=== PATIENT | female | born 1970 | race Caucasian/White ===

== ENCOUNTER 2017-02-15 21:19 | Emergency (ER) | payer BC ==
[2017-02-15] MEDS ORDERED: 0.9 % SODIUM CHLORIDE 1,000 ML IV SCH ×2 (22:00→23:30)
--- NOTE | 2017-02-15 22:34 | Diagnostic Imaging Report ---
MELANY ZAVALA [facility] [address] [facility].[address] [address] Report Submission Date: Feb 15, 2017 10:22:23 PM CDT Patient Study Name: TONE HER Date: Feb 15, 2017 9:40:26 PM CDT Modality Type: CR Gender: F Description: CHEST : 70 Institution: [facility] Physician: MELANY ZAVALA Chest - one-view Clinical history: Chest pain. Findings: Examination of the chest in single portable AP view 02/15/2017 2140 hours with no prior film for comparison demonstrates lungs to be clear. Cardiovascular and mediastinal silhouettes are within normal limits. The bony thorax is intact. Impression: 1. No active disease Electronically signed on Feb 15, 2017 10:22:23 PM CDT by: Damon IRENE
[2017-02-15 22:42] LABS: BASOPHILS % 0.8 (0.0-1.5); EOSINOPHILS % 2.2 % (0.0-6.8); MEAN CORPUSCULAR HEMOGLOBIN 27.7 pg (28.0-34.0); MONOCYTES % 4.6 % (0.0-11.0); NEUTROPHILS # 6.9 # k/uL (1.4-7.7)
[2017-02-15 22:44] LABS: eGFR (African) > 60; eGFR (Non-African) > 60
--- NOTE | 2017-02-15 22:58 | ED Physician Documentation ---
Chest Pain - HISTORIAN Historian: patient, paramedics - [facility] Chief Complaint: Chest Pain Additional Information: dhestpain nausea emesis [id number] and has been 300+ for past few days - usually runs below 200 Onset: days ago (last urine 1630 small amt) Timing: gradual onset Duration: worse Last known Well Date: 02/13/17 Last Known Well Time: 17:00 Context: activity Severity: moderate Quality: none. denies: pressure, tightness, indigestion, burning, dull, aching , sharp Chest Pain Radiation: no radiation Chest Pain Signs/Symptoms: nausea. denies: vomiting, diaphoresis, cool extremities, dizziness Worsened By: nothing - ROS CONST: no problems MS/LYMPH: none EYES/ENT: none SKIN/ENDO: none NEURO/PSYCH: none, other (very hard of hearing) - PAST HX AL risk factors: no pertinent history, other (htn hypothryoid). denies: hypertension, diabetes Type 1 DVT/PE Risk Factors: none TAD/AAA risk factors: none Neuro deficit: none GI disease: GERD (had hiatal hernia repair now better) Surgeries/Procedures: cholecysectomy Allergies/Adverse Reactions: Allergies Allergy/AdvReac Type Severity Reaction Status Date / Time grass pollen-perennial rye, Allergy Verified 04/25/15 02:02 standar [grass poll-perennial rye,std] Iodine and Iodide Containing Allergy Verified 04/25/15 02:02 Produc onion Allergy Verified 04/25/15 02:02 shellfish derived Allergy Verified 04/25/15 02:02 wheat Allergy Verified 04/25/15 02:02 Home Medications: Ambulatory Orders Medication Instructions Recorded Citalopram Hydrobromide [Celexa] 20 mg PO QD 04/25/15 Ergocalciferol (Vitamin D2) 50,000 unit PO WEEK 04/25/15 [Vitamin D2] Hydrochlorothiazide [Hydrodiuril] 12.5 mg PO D 04/25/15 Insulin Glargine,Hum.rec.anlog 80 unit SQ D 04/25/15 [Lantus] Levothyroxine Sodium [Synthroid] 100 mcg PO 0700 04/25/15 Lisinopril 5 mg PO D 04/25/15 Metformin HCl [Glucophage] 1,000 mg PO D 04/25/15 Metoprolol Tartrate [Lopressor] 25 mg PO D 04/25/15 Omeprazole 20 mg PO D 04/25/15 Potassium Chloride [Klor-Con M20] 20 meq PO DAILY 04/25/15 Trazodone HCl 50 mg PO HS 04/25/15 - SOCIAL HX Smoking History: non-smoker Alcohol Use: none Drug Use: none - FAMILY HX Family HX: none - VITAL SIGNS Vital Signs: Vital Signs Temp Pulse Resp BP Pulse Ox 164/79 04/25/15 03:52 - REVIEWED ASSESSMENTS Nursing Assessment Reviewed: Yes Vitals Reviewed: Yes ED Results Lab/Radiology - Lab Results Lab Results: Lab Results 02/15/17 02/15/17 02/15/17 22:21 22:21 22:21 WBC 9.40 K/ul K/ul (4.00-12.00) RBC 4.72 M/ul M/ul (3.90-5.20) Hgb 13.1 g/dL g/dL (12.0-16.0) Hct 42.1 % % (34.5-46.5) MCV 89.0 fl fl (80.0-100.0) MCH 27.7 pg L pg (28.0-34.0) MCHC 31.1 g/dL g/dL (30.0-36.0) RDW 13.7 % % (11.3-14.3) Plt Count 257 K/mm3 K/mm3 (130-400) Neut % (Auto) 73.2 % % (39.0-79.0) Lymph % (Auto) 17.1 % % (16.0-50.0) Island % (Auto) 4.6 % % (0.0-11.0) Eos % (Auto) 2.2 % % (0.0-6.8) Baso % (Auto) 0.8 (0.0-1.5) Neut # (Auto) 6.9 # k/uL # k/uL (1.4-7.7) Lymph # (Auto) 1.6 # k/uL # k/uL (0.6-4.0) Island # (Auto) 0.4 # k/uL # k/uL (0.0-0.9) Eos # (Auto) 0.2 # k/uL # k/uL (0.0-0.6) Baso # (Auto) 0.1 # k/uL # k/uL (0.0-0.5) Reactive Lymphs % 2.2 % % (0.0-5.0) Reactive Lymphs # 0.2 # k/uL # k/uL (0.0-0.8) Sodium 134 mmol/L L mmol/L (136-145) Potassium 3.8 mmol/L mmol/L (3.5-5.0) Chloride 99 mmol/L mmol/L (98-110) Carbon Dioxide 28 mmol/L mmol/L (20-32) BUN 16 mg/dL mg/dL (10-26) Creatinine 0.7 mg/dL mg/dL (0.4-1.5) Est GFR ( Amer) > 60 (60 - ) Est GFR (Non-Af Amer) > 60 (60 - ) Glucose 328 mg/dL H mg/dL (70-99) Calcium 9.2 mg/dL mg/dL (8.5-10.5) Total Bilirubin 1.3 mg/dL H mg/dL (0.2-1.2) AST 44 U/L H U/L (0-41) ALT 27 U/L U/L (0-45) Alkaline Phosphatase 177 U/L H U/L (46-116) Troponin I < 0.03 ng/mL L ng/mL (0.03-0.06) Total Protein 7.8 g/dL g/dL (6.0-8.5) Albumin 4.1 g/dL g/dL (3.0-5.5) - Orders Orders: ED Orders Category Date Time Status Continuous EKG monitoring Q30M Care 02/15/17 21:28 Active Continuous Pulse Oximetry Q30M Care 02/15/17 21:[address] IV Lock 1T Care 02/15/17 21:39 Active CHEST 1 VIEW [RAD] Stat Exams 02/15/17 21:28 Completed CBC/PLATELET/DIFF Routine Lab 02/15/17 22:21 Completed CMP Routine Lab 02/15/17 22:21 Completed GLYCOHEMOGLOBIN A1C with eAG Routine Lab 02/15/17 22:21 Received TROPONIN I (cTnI) Stat Lab 02/15/17 22:21 Completed UA [URINALYSIS] Routine Lab 02/15/17 Ordered 0.9 % Sodium Chloride [Normal Saline] 1,000 ml Med 02/15/17 22:00 Ordered IV Q10H Oxygen Daily Oxygen 02/15/17 21:30 Ordered EKG WITH COMPARISON Stat Ther 02/15/17 21:28 Ordered Chest Pain Physical Exam - EXAM General Appearance: moderate distress, anxious, lethargic EENT: eye inspection normal Neck: nml inspection, no carotid bruit. No: JVD present, lymphadenopathy Respiratory: no resp. distress, nml breath sounds CVS: reg. rate & rhythm, no murmur Abdomen: soft, non-tender Skin: warm/dry, normal color. No: cyanosis, diaphoresis, jaundice, mottled Extremities: non-tender, normal range of motion, no evidence of injury, no edema Neuro: oriented X3, CN's nml as tested, motor nml, sensation nml, mood/affect nml, cognition normal Discharge Clincal Impression: mild diabetic ketoacidosis Referrals: Jonah Hair [Primary Care Provider] - 2 Days Condition: Good Disposition: 01 HOME, SELF-CARE Decision to Admit: NO Decision Time: 23:29
[2017-02-15] MEDS ORDERED: 0.9 % SODIUM CHLORIDE 1,000 ML IV ONE (23:43)
[2017-02-16 01:13] VITALS: BP 166/73
[2017-02-16 05:30] LABS: COLOR,URINE AMBER (YELLOW)
[2017-02-16 05:31] LABS: APPEARANCE,URINE TURBID (CLEAR); OCCULT BLOOD,URINE 1+ (NEGATIVE)
== END 2017-02-16 00:45 | disposition home or self-care (01) ==
LOC: ED 21:19
DX: E13.10 Other specified diabetes mellitus with ketoacidosis without coma (principal)
CPT/HCPCS: 71010; 80053; 83036; 84484; 85025; J7030; 81002; 96360; 99284; S1016

== ENCOUNTER 2017-06-14 17:19 | Emergency (ER) | payer BC, OTHER ==
--- NOTE | 2017-06-14 17:43 | ED Physician Documentation ---
Chest Pain - HISTORIAN Historian: patient - HPI Chief Complaint: Chest Pain Additional Information: at work started feeling light headed, then went to nurse, found her HR in 120's , (not normal for her) BP machine said a-fib, she hasn't been dx with a-fib. she is seeing a student services coordinator tomorrow for cont heart workup. she was having sharp chest pain, deided to drive to [place] but in car, started feeling chest pressure and SOA, with pain in arm, so decided to stop here. has had similar in past. was told"worrisome findings on heart holter monitor" that she was getting worked up for by card at [facility]. she was on Beta kayleigh for years for prev episode, but was taken of it 2 years ago. Now "they want to put me back on beta kayleigh but want to do somwe other tests first." She has no relationship with any cardilogist at this time, she's supposed to meet him tomorrow. Onset: minutes Timing: sudden onset Duration: waxing, waning Last known Well Date: 06/14/17 Last Known Well Time: 18:29 Context: activity Severity: moderate Quality: pressure Chest Pain Radiation: arms Chest Pain Signs/Symptoms: dizziness, dyspnea, palpitations. denies: nausea, vomiting, diaphoresis, cool extremities Worsened By: nothing Relieved By: nothing Further Comments: no - ROS CONST: none MS/LYMPH: none GI/: none EYES/ENT: none SKIN/ENDO: none NEURO/PSYCH: none - PAST HX OR risk factors: hypertension, diabetes Type 1 DVT/PE Risk Factors: none TAD/AAA risk factors: none Neuro deficit: none GI disease: none Lung disease: none Surgeries/Procedures: none Allergies/Adverse Reactions: Allergies Allergy/AdvReac Type Severity Reaction Status Date / Time aspirin Allergy Verified 06/14/17 17:49 grass pollen-perennial rye, Allergy Verified 06/14/17 17:49 standar [grass poll-perennial rye,std] Iodine and Iodide Containing Allergy Verified 06/14/17 17:49 Produc NSAIDS (Non-Steroidal Allergy Verified 06/14/17 17:49 Anti-Inflamma onion Allergy Verified 06/14/17 17:49 shellfish derived Allergy Verified 06/14/17 17:49 wheat Allergy Verified 06/14/17 17:49 Home Medications: Ambulatory Orders Medication Instructions Recorded Levothyroxine Sodium [Synthroid] 100 mcg PO 0700 04/25/15 Duloxetine HCl [Cymbalta] 60 mg PO DAILY 06/14/17 Insulin Glargine,Hum.rec.anlog 10 ml SQ HS 06/14/17 [Toujeo Solostar] Lisinopril [Zestril] 10 mg PO DAILY 06/14/17 gliPIZIDE [Glucotrol] 10 mg PO BID 06/14/17 - SOCIAL HX Smoking History: non-smoker Alcohol Use: none Drug Use: none - FAMILY HX Family HX: none - VITAL SIGNS Vital Signs: Vital Signs Temp Pulse Resp BP Pulse Ox 166/73 02/16/17 01:09 - REVIEWED ASSESSMENTS Nursing Assessment Reviewed: Yes Vitals Reviewed: Yes ED Results Lab/Radiology - Lab Results Lab Results: Alk Phos elev. , everything else normal. - Orders Orders: ED Orders Category Date Time Status Continuous EKG monitoring Q30M Care 06/14/17 17:37 Ordered Continuous Pulse Oximetry Q30M Care 06/14/17 17:[address] IV Lock 1T Care 06/14/17 17:37 Ordered CHEST 1 VIEW [RAD] Stat Exams 06/14/17 17:37 Ordered CBC/PLATELET/DIFF Routine Lab 06/14/17 17:37 Ordered CMP Routine Lab 06/14/17 17:37 Ordered CREATINE KINASE Routine Lab 06/14/17 17:37 Ordered TROPONIN I (cTnI) Stat Lab 06/14/17 17:37 Ordered Oxygen Daily Oxygen 06/14/17 17:45 Ordered EKG WITH COMPARISON Stat Ther 06/14/17 17:37 Ordered Chest Pain Physical Exam - EXAM General Appearance: no acute distress, alert EENT: eye inspection normal, ENT inspection normal Neck: nml inspection Respiratory: no resp. distress, chest non-tender, nml breath sounds CVS: pulses equal, tachycardia. No: frequent extrasystoles Abdomen: soft Skin: warm/dry, normal color Extremities: non-tender Neuro: oriented X3 Discharge Clincal Impression: Heart palpitations, Alkaline phosphatase elevation, Chest pain in adult Referrals: Jonah Hair [Primary Care Provider] - 2 Days Condition: Stable Disposition: HOME, SELF-CARE Decision to Admit: NO Date of Decison to Admit: 06/14/17 Decision Time: 18:29
[2017-06-14 17:57] LABS: eGFR (African) > 60; eGFR (Non-African) > 60
[2017-06-14 18:00] LABS: BASOPHILS % 0.4 (0.0-1.5); MEAN CORPUSCULAR HEMOGLOBIN 31.3 pg (28.0-34.0); MEAN CORPUSCULAR VOLUME 93.4 fl (80.0-100.0); MONOCYTES % 4.7 % (0.0-11.0); NEUTROPHILS # 8.6 # k/uL (1.4-7.7)
--- NOTE | 2017-06-14 18:26 | Diagnostic Imaging Report ---
KATHLEEN ROCHA~ [facility] [address] [facility].[address] [address] ~ ~ ~ ~ Report Submission Date: Jun 14, 2017 6:22:47 PM [employer] Patient ~ Study Name: TONE HER ~ Date: Jun 14, 2017 6:04:55 PM [employer] ~ Modality Type: CR Gender: F ~ Description: CHEST : 70 ~ Institution: [facility] Physician: KATHLEEN ROCHA ~ ~ ~ Chest, AP portable HISTORY Chest pain. FINDINGS No infiltrate, effusion or pneumothorax is present. Heart size, mediastinum and pulmonary vascularity are normal. Since 02/15/2017, no change has occurred. IMPRESSION No active disease. ~ Electronically signed on Jun 14, 2017 6:22:47 PM [employer] by: Alexander IRENE
[2017-06-14 18:52] VITALS: BP 84/59
== END 2017-06-14 18:50 | disposition home or self-care (01) ==
LOC: ED 17:19
DX: R07.9 Chest pain, unspecified (principal); R00.2 Palpitations; R74.8 Abnormal levels of other serum enzymes
CPT/HCPCS: 71010; 80053; 82550; 84484; 85025; 99283; S1016